=== PATIENT | female | born 1955 | race African-American/Black ===

== ENCOUNTER → 2016-11-03 | Outpatient (CLI) | payer OTHER ==
[~2016-11-03] MED LIST: ALEVE220 MG PO; AMARYL2 MG PO; ANTIVERT25 MG PO; CARVEDILOL6.25 MG PO; CLONIDINE0.1 PO; ESTRACE1 MG PO; FLEXERIL PO; HYDROCODON-ACE1 EAC8 PO; HYDROCODONE-APA1 TA1 PO; K-DUR 20 MEQ T20 MEQ PO; LANTUS100 UNIT/M SUBQ; LISINOPRIL5 MG PO; MAG-OX 400 TAB400 M1 PO; METFORMIN HCL500 MG PO; METFORMIN PO; MOTION RELIEF25 MG PO; NORCO 5-325 TA1 EACH PO; PREMARIN; TIZANIDINE HCL4 MG PO; TRAMADOL 50 MG50 MG PO; ULTRAM 50MG TAB50 MG PO
--- NOTE | ~2016-11-03 | 2DMMODE ---
[facility] [place] [address] 2 D/M-MODE ECHOCARDIOGRAM Name: DONNA WYNN Room #: REG CL Ray#: [id number] Admission: 11/03/16 Attend Phys: Venkat Raphael Discharge: Date of : 57 Date of Service: 11/03/16 1252 Report #: [id number] THIS REPORT FOR: //name// Transthoracic Echocardiography Ordering physician: Venkat Devries Referring Rhona Gil, physician: Venkat Koo [employer] Pro[employer] Job Titles: ANTONIO Magallon Indications/History: Cardiomyopathy, HTN. BP: 122 / HR: 65bpm Height: 69in Weight: 183.6lb 82 Study data: M-mode, complete 2D, complete spectral Doppler, and color Doppler. Location: Echo laboratory. Routine. Image quality was good. 2D measurements Normal Normal LVID ED 56.3mm 36-57 IVS ED 9.6mm 6-11 LVID ES 43.7mm 23-40 LVPW ED 10.5mm 6-11 LA volume 36ml/m2 16-28 AoRoot diam 29.4mm 21-37 index ED LVOT diameter 21mm 18-23 Findings: Left ventricle: The cavity size was normal. Wall thickness was normal. Systolic function was mildly reduced. The estimated ejection fraction was in the range of 45% to 50%. Wall motion was normal. Right ventricle: The cavity size was normal. Systolic function was normal. Right atrium: The atrium was normal in size. Left atrium: The atrium was dilated. Volume index: 36ml/m2 (S). Aortic valve: Trileaflet; mildly calcified leaflets. Doppler: There was no stenosis. No regurgitation. [address] [address] 2 D/M-MODE ECHOCARDIOGRAM Name: DONNA WYNN Room #: REG CL MBobRBob#: [id number] Admission: 11/03/16 Attend Phys: Venkat Raphael Discharge: Date of : 57 Date of Service: 11/03/16 1252 Report #: [id number] Peak velocity: 134.7cm/s (S). Mitral valve: Structurally normal valve. Doppler: There was no evidence for stenosis. Mild regurgitation. Peak E-wave velocity: 74cm/s. Peak gradient: 2.2mm Hg (D). Peak A-wave velocity: 67.5cm/s. Tricuspid valve: Structurally normal valve. Doppler: There was no evidence for stenosis. Mild regurgitation. Regurgitant peak velocity: 260.8cm/s. Peak RV-RA gradient: 27mm Hg (S). Pulmonic valve: Structurally normal valve. Doppler: There was no evidence for stenosis. Trivial regurgitation. Pericardium: There was no pericardial effusion. Aorta: Aortic root: The aortic root was normal in size. Pulmonary artery: Systolic pressure was estimated to be 32mm Hg. Diastolic function: Normal diastolic function. Systemic veins: Inferior vena cava: The vessel was normal in size; the respirophasic diameter changes were in the normal range (= 50%). Conclusions 1. Left ventricle: The cavity size was normal. Wall thickness was normal. 2. Left atrium: The atrium was dilated. 3. Aortic valve: No regurgitation. 4. Mitral valve: Structurally normal valve. Mild regurgitation. 5. Pulmonic valve: Trivial regurgitation. 6. Tricuspid valve: Mild regurgitation. 7. Pulmonary arteries: Systolic pressure was estimated to be 32mm Hg. <ELECTRONICALLY SIGNED> By: Venkat Devries MD 11/03/16 1431 1252 1431 Venkat Devries MD /eyad
== END ==
LOC: CV 10-01 10:50
DX: I42.9 Cardiomyopathy, unspecified (principal); I10 Essential (primary) hypertension

== ENCOUNTER → 2017-01-19 | Outpatient (CLI) | payer OTHER ==
--- NOTE | ~2017-01-19 | 2DMMODE ---
[address] [address] 2 D/M-MODE ECHOCARDIOGRAM Name: DONNA WYNN Room #: REG CL [facility]#: [id number] Admission: 01/19/17 Attend Phys: Venkat Raphael Discharge: Date of : 57 Date of Service: 01/20/17 0758 Report #: [id number] THIS REPORT FOR: //name// APPROVED REPORT EXAM: Limited 2D Echocardiogram Patient Location: Out-Patient Blood Pressure: 132/74 mmHg HR: 58 bpm Other Information Study Quality: Good Indications Cardiomyopathy Left Ventricle The left ventricle is normal size. Hypokinesis involving the inferolateral wall There is normal left ventricular wall thickness. Left ventricular systolic function is mildly decreased. LVEF is 45%. Diastolic function was not assessed. Right Ventricle The right ventricle is normal size. The right ventricular systolic function is normal. Atria The left atrium size is normal. The right atrium size is normal. Aortic Valve The aortic valve is normal in structure. Mitral Valve The mitral valve is normal in structure. Tricuspid Valve The tricuspid valve is normal in structure. Pulmonic Valve The pulmonary valve is normal in structure. Great Vessels [address] [address] 2 D/M-MODE ECHOCARDIOGRAM Name: DONNA WYNN Room #: REG CL [facility]#: [id number] Admission: 01/19/17 Attend Phys: Venkat Raphael Discharge: Date of : 57 Date of Service: 01/20/17 0758 Report #: [id number] The aortic root is normal in size. IVC is not visualized. Pericardium There is no pericardial effusion. <Conclusion> Left ventricular systolic function is mild-moderately decreased. Hypokinesis involving the inferolateral wal. LVEF is 45%. The aortic valve is normal in structure. No Doppler The mitral valve is normal in structure. No Doppler There is no pericardial effusion. <ELECTRONICALLY SIGNED> By: Malik Landrum MD, [facility] 01/20/17 0758 0758 0758 Malik Landrum MD, FAC /INF
== END ==
LOC: CV 01-07 10:14
DX: I42.9 Cardiomyopathy, unspecified (principal)

== ENCOUNTER 2017-05-06 18:52 | Emergency (ER) | payer OTHER ==
[~2017-05-06] VITALS: Ht 175.3 cm; Wt 87.1 kg
--- NOTE | ~2017-05-06 | EKG ---
[place] [address] [address] [employer] [facility] [place] [place] [address] ELECTROCARDIOGRAM REPORT Name: DONNA OWUSU Room #: DEP [facility]#: [id number] Admission: 05/06/17 Attend Phys: Discharge: 05/06/17 Date of : 57 Report #: [id number] THIS REPORT FOR: //name// [facility] ED Test Date: 2017-05-06 Test Time: 19:22:37 Pat Name: DONNA OWUSU Department: Room: Gender: F Customer Management Specialist: abner : [id number] Requested By: Rosales Arredondo Order Number: [id number] MD: Malik Landrum Measurements Intervals Wright Rate: 72 P: 53 NV: 147 QRS: -50 QRSD: 149 T: -13 QT: 409 QTc: 448 Interpretive Statements Sinus rhythm Paired ventricular premature complexes Probable left atrial enlargement RBBB and LAFB Compared to ECG 11/21/2015 09:48:14 [address]ons[address] change in the ST and T-wave segments Electronically Signed On 05-08-2017 13:19:21 CDT by Malik Landrum [email or web address] <ELECTRONICALLY SIGNED> By: Malik Landrum MD, [facility] 05/08/17 1319 192 21 Malik Landrum MD, [facility] /EPI
[2017-05-06] MEDS ORDERED: LANTUS100 UNIT/M SUBQ (19:11)
[2017-05-06] MEDS ORDERED: DEMADEX20 MG PO (19:11)
[2017-05-06] MEDS ORDERED: METFORMIN HCL500 MG PO (19:11)
[2017-05-06] MEDS ORDERED: AMITIZA 24 MCG24 MC1 PO (19:12)
[2017-05-06] MEDS ORDERED: COZAAR 50 MG TA50 M2 PO (19:12)
[2017-05-06 19:34] LABS: ABSOLUTE NEUTROPHILS 4.9 thou/uL (1.4-8.2); BASOPHILS 0.5 % (0.0-2.0); EOSINOPHILS 2.2 % (0.0-3.0); HEMATOCRIT 34.5 % (37.0-47.0); HEMOGLOBIN 11.4 gm/dL (12.0-15.0); LYMPHOCYTES 21.9 % (24.0-44.0); MANUAL DIFF NO; MCH 27.4 pg (26.0-34.0); MCHC 33.2 g/dL (28.0-37.0); MCV 82.5 fL (80.0-100.0); PLATELET COUNT 325 thou/uL (150-400); POLYS 67.4 % (36.0-66.0); RBC 4.18 mil/uL (4.20-5.00); WBC 7.3 thou/uL (4.0-11.0)
[2017-05-06 20:02] LABS: ALBUMIN 3.7 g/dL (3.4-5.0); ALKALINE PHOSPHATASE 52 U/L (46-116); ANION GAP 8 mmol/L (7-16); BUN 10 mg/dL (7-18); CALCIUM 8.4 mg/dL (8.5-10.1); CHLORIDE 107 mmol/L (98-107); CK-MB MASS 1.7 ng/mL (<0.5-3.6); CO2 28 mmol/L (21-32); GLUCOSE 124 mg/dL (74-106); MAGNESIUM 1.4 mg/dL (1.8-2.4); NT-PRO BRAIN NAT PEPTIDE 6811 pg/mL (<300); SGOT 32 U/L (15-37); SGPT 43 U/L (30-65); SODIUM 143 mmol/L (136-145); TOTAL BILIRUBIN 0.4 mg/dL (<0.1-1.0); TOTAL PROTEIN 7.2 g/dL (6.4-8.2); TROPONIN-I < 0.04 ng/mL (<0.04-0.07)
[2017-05-06 20:05] LABS: POTASSIUM 2.9 mmol/L (3.5-5.1)
[2017-05-06] MEDS ORDERED: MAG-OXIDE400 MG PO (21:12)
[2017-05-06] MEDS ORDERED: POTASSIUM20 PO (21:12)
[2017-05-06] MEDS ORDERED: VENTOLIN HFA 1818 GM INH (21:12)
== END 2017-05-06 21:36 | disposition home or self-care (01) ==
LOC: ER 18:52
PROVIDERS: Emergency Medicine
DX: S39.011A Strain of muscle, fascia and tendon of abdomen, initial encounter (principal); J40 Bronchitis, not specified as acute or chronic; J98.11 Atelectasis; R11.10 Vomiting, unspecified; E11.9 Type 2 diabetes mellitus without complications; Z90.710 Acquired absence of both cervix and uterus; Z98.890 Other specified postprocedural states; Z79.4 Long term (current) use of insulin; X58.XXXA Exposure to other specified factors, initial encounter; Y93.89 Activity, other specified; Y92.89 Other specified places as the place of occurrence of the external cause; Y99.8 Other external cause status

== ENCOUNTER 2017-12-09 08:37 | Inpatient (IN) | payer OTHER ==
[~2017-12-09] VITALS: Ht 175.3 cm; Wt 88.9 kg
--- NOTE | ~2017-12-09 | EKG ---
[place] [address] [place] [address] ELECTROCARDIOGRAM REPORT Name: DONNA OWUSU Room #: 409-[facility].R.#: [id number] Admission: 12/09/17 Attend Phys: Bryan Boswell Discharge: Date of : 57 Report #: [id number] THIS REPORT FOR: //name// [facility] ED Test Date: 2017-12-09 Test Time: 10:40:19 Pat Name: DONNA OWUSU Department: Room: 409 Gender: F Dehydrogenation Supervisor: MAITE : [id number] Requested By: Lisa Corrigan Order Number: [id number] MD: Malik Landrum Measurements Intervals [place] Rate: 55 P: 37 MT: 136 QRS: -56 QRSD: 144 T: 0 QT: 475 QTc: 455 Interpretive Statements Sinus rhythm Paired ventricular premature complexes 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 12/12/17 0713 1040 1040 Malik Landrum MD, [facility] /EPI
--- NOTE | ~2017-12-09 | D ---
[facility] [place] [address] DISCHARGE SUMMARY Name: DONNA WYNN Room #: [facility] IN M.R.#: [id number] Admission: 12/12/17 Attend Phys: Bryan Boswell Discharge: 12/12/17 Date of : 57 Report #: [id number] THIS REPORT FOR: //name// CC: Rhona Boswell DATE OF SERVICE: 12/12/2017 HISTORY OF PRESENT ILLNESS: The patient is a 62-year-old female with a history of congestive heart failure, systolic dysfunction with ejection fraction of 45%, who came to the hospital with progressively worsening shortness of breath. Please refer to admission H and P for details. In brief, the patient was found to have congestive heart failure exacerbation. Chest x-ray also shows right hilar prominence, so pneumonia could not be ruled out. HOSPITALIZATION COURSE: The patient was hospitalized for congestive heart failure exacerbation. She was started on IV diuresis, fluid and salt restricted diet. The patient did well. Currently, the patient feels much better, shortness of breath has entirely resolved, and she is asymptomatic. The patient was instructed to take medications properly and follow low salt diet closely. Close outpatient followup is recommended. DISCHARGE DIAGNOSES: 1. Acute on chronic congestive heart failure exacerbation, systolic. As noted, ejection fraction is 45% per previous records. Currently compensated. 2. Right hilar infiltrate on the chest x-ray, pneumonia cannot be ruled out. Continue empiric Levaquin as an outpatient. SECONDARY DIAGNOSES: Include diabetes mellitus type 2, status post hysterectomy, hypertension, history of lower back surgery. DISCHARGE MEDICATIONS: Please refer to medication reconciliation list. In brief, the patient will be continued on outpatient medications unchanged. She is already on ARB, as well as on Coreg, and torsemide. Levaquin is prescribed for 5 more days. DISPOSITION: The patient is discharged home. FOLLOWUP PLAN: Follow up with senior process analyst in 1 week. <ELECTRONICALLY SIGNED> By: Ángel Valdez MD 01/08/18 1549 1323 1406 Ángel Valdez MD /nt
[~2017-12-09 08:37] MED LIST changes: +AMITIZA 24 MCG24 MC1 PO; +COZAAR 50 MG TA50 M2 PO; +DEMADEX20 MG PO; +GLUCOPHAGE500 MG PO; +HYDROCODON-ACE1 EAC1 PO; +LANTUSSOLASTAR SUBQ; +MAG-OXIDE400 MG PO; +PERCOCET 5-3251 EACH PO; +POTASSIUM20 PO; +PREDNISONE 5 MG5 MG PO; +VENTOLIN HFA 1818 GM INH
[2017-12-09 08:48] VITALS: BP 162/106
[2017-12-09] MEDS ORDERED: COREG25 MG PO (09:38)
[2017-12-09] MEDS ORDERED: ALDACTONE25 MG PO (09:38)
[2017-12-09] MEDS ORDERED: NORCO 5-325 TA1 EACH PO (09:39)
[2017-12-09] MEDS ORDERED: COZAAR 50 MG TA50 M2 PO (09:39)
[2017-12-09 09:54] LABS: ABSOLUTE NEUTROPHILS 4.1 thou/uL (1.4-8.2); BASOPHILS 0.8 % (0.0-2.0); EOSINOPHILS 1.6 % (0.0-3.0); HEMATOCRIT 35.3 % (37.0-47.0); HEMOGLOBIN 11.5 gm/dL (12.0-15.0); LYMPHOCYTES 18.6 % (24.0-44.0); MCH 27.2 pg (26.0-34.0); MCHC 32.7 g/dL (28.0-37.0); MONOCYTES 7.4 % (1.0-8.0); PLATELET COUNT 268 thou/uL (150-400); POLYS 71.6 % (36.0-66.0); RBC 4.25 mil/uL (4.20-5.00); WBC 5.8 thou/uL (4.0-11.0)
[2017-12-09 10:01] LABS: ANION GAP 8 mmol/L (7-16); BUN 14 mg/dL (7-18); CALCIUM 8.9 mg/dL (8.5-10.1); CHLORIDE 107 mmol/L (98-107); CO2 28 mmol/L (21-32); CREATININE 0.8 mg/dL (0.6-1.0); GLUCOSE 129 mg/dL (74-106); POTASSIUM 3.8 mmol/L (3.5-5.1); SODIUM 143 mmol/L (136-145)
[2017-12-09 10:09] LABS: TROPONIN-I < 0.04 ng/mL (<0.06)
[2017-12-09 12:24] VITALS: BP 130/91
[2017-12-09 13:08] VITALS: BP 140/86
[2017-12-09 19:47] VITALS: BP 151/86
[2017-12-10 04:00] VITALS: BP 141/88
[2017-12-10 04:53] LABS: CALCIUM 9.2 mg/dL (8.5-10.1); CREATININE 0.8 mg/dL (0.6-1.0); MAGNESIUM 1.7 mg/dL (1.8-2.4); POTASSIUM 4.1 mmol/L (3.5-5.1)
[2017-12-10 08:22] VITALS: BP 159/88
[2017-12-10 15:32] VITALS: BP 132/67
[2017-12-10 20:00] VITALS: BP 144/77
[2017-12-11 04:00] VITALS: BP 150/85
[2017-12-11 08:00] VITALS: BP 143/82
[2017-12-11 16:00] VITALS: BP 152/89
[2017-12-11 19:52] VITALS: BP 153/85
[2017-12-12 04:30] VITALS: BP 130/92
[2017-12-12 04:32] LABS: ABSOLUTE NEUTROPHILS 5.1 thou/uL (1.4-8.2); BASOPHILS 0.6 % (0.0-2.0); EOSINOPHILS 2.3 % (0.0-3.0); HEMATOCRIT 39.7 % (37.0-47.0); HEMOGLOBIN 13.2 gm/dL (12.0-15.0); LYMPHOCYTES 20.1 % (24.0-44.0); MCH 27.3 pg (26.0-34.0); MCHC 33.2 g/dL (28.0-37.0); MCV 82.2 fL (80.0-100.0); MONOCYTES 8.3 % (1.0-8.0); PLATELET COUNT 315 thou/uL (150-400); POLYS 68.7 % (36.0-66.0); RBC 4.83 mil/uL (4.20-5.00); RDW 13.9 % (10.5-14.5); WBC 7.4 thou/uL (4.0-11.0)
[2017-12-12 04:41] LABS: CALCIUM 9.1 mg/dL (8.5-10.1); CREATININE 1.1 mg/dL (0.6-1.0); MAGNESIUM 1.5 mg/dL (1.8-2.4); POTASSIUM 3.7 mmol/L (3.5-5.1)
[2017-12-12 08:30] VITALS: BP 143/85
[2017-12-12] MEDS ORDERED: LEVAQUIN 500 M500 M1 PO (13:25)
[2017-12-12 15:09] VITALS: BP 143/85
[2017-12-12 15:54] VITALS: BP 143/85
[2017-12-12 16:38] VITALS: BP 125/63
== END 2017-12-12 17:15 | disposition home or self-care (01) | DRG 291 ==
LOC: ER 08:37 → 4N 10:50 → EROBS 10:50 → 4N 12:54 → ENTRNSPT 13:33 → 4N 12-12 12:27 → ENTRNSPT 12-12 16:28 → 4N 12-12 17:15
PROVIDERS: Emergency Medicine; Nurse Practitioner
DX: I11.0 Hypertensive heart disease with heart failure (principal); J18.9 Pneumonia, unspecified organism; J96.90 Respiratory failure, unspecified, unspecified whether with hypoxia or hypercapnia; I50.9 Heart failure, unspecified; E11.9 Type 2 diabetes mellitus without complications; E78.5 Hyperlipidemia, unspecified; R91.1 Solitary pulmonary nodule; K59.00 Constipation, unspecified; Z79.4 Long term (current) use of insulin; G89.29 Other chronic pain; M54.9 Dorsalgia, unspecified; Z79.891 Long term (current) use of opiate analgesic; Z90.710 Acquired absence of both cervix and uterus; Z82.49 Family history of ischemic heart disease and other diseases of the circulatory system; Z79.899 Other long term (current) drug therapy
CPT/HCPCS: 10790

== ENCOUNTER 2017-12-15 15:10 | Inpatient (IN) | payer OTHER ==
[~2017-12-15] VITALS: Ht 175.3 cm; Wt 83.9 kg
--- NOTE | ~2017-12-15 | H ---
[facility] [place] [address] HISTORY AND PHYSICAL Name: DONNA WYNN Room #: 411-P [facility] IN M.R.#: [id number] Admission: 12/16/17 Attend Phys: Ángel Valdez MD Discharge: 12/19/17 Date of : 57 Report #: [id number] THIS REPORT FOR: //name// CC: Rhona Valdez DATE OF SERVICE: 12/15/2017 CHIEF COMPLAINT: Intractable back pain. HISTORY OF PRESENT ILLNESS: The patient is a 62-year-old female with longstanding history of back problems. The patient was just hospitalized here for CHF exacerbation, and was discharged home a few days ago. At that time, the patient was hospitalized under different last name, Aliza, same first name. The patient states that after she went home, her CHF has been stable, and she has not had shortness of breath. The patient has had back pain since 2000 when she sustained injury at work. The patient had several surgeries since then. Currently, the patient takes ibuprofen at home as well as [place]. She states that pain medications do not work well. She does not follow in the Pain Clinic. Last couple of days, patient had intractable back pain, and she states that it is hard to walk. The patient denies paresthesias. She denies urinary or fecal incontinence. PAST MEDICAL HISTORY: 1. CHF, nonischemic cardiomyopathy, ejection fraction 45% based on echo in 12/2016. 2. Diabetes mellitus type 2. 3. Hypertension. 4. Chronic back pain, as detailed above. HOME MEDICATIONS: Reviewed and documented in the patient's chart. FAMILY HISTORY: Reviewed and not pertinent to the patient's current condition. SOCIAL HISTORY: The patient does not smoke cigarettes and does not drink alcohol. REVIEW OF SYSTEMS: As above in HPI section, all others negative. PHYSICAL EXAMINATION: GENERAL: The patient is a middle-aged female, looks uncomfortable due to ongoing pain. VITAL SIGNS: Blood pressure is 139/86, heart rate is 75, respiration is 16, temperature is 98.1. HEENT: Pupils are equal. Eye movements are normal. Sclerae are anicteric. [facility] [address] [place] [address] HISTORY AND PHYSICAL Name: DONNA WYNN Room #: 411-P [facility] IN M.R.#: [id number] Admission: 12/16/17 Attend Phys: Ángel Valdez MD Discharge: 12/19/17 Date of : 57 Report #: [id number] NECK: Supple. Thyromegaly is not palpated. RESPIRATORY: Chest moves symmetrically with breathing. Respiratory sounds are clear. CARDIOVASCULAR: The patient has regular rhythm and rate. She has no murmurs, gallops or rubs. GASTROINTESTINAL: Abdomen is soft, nondistended and nontender. Bowel sounds are present. The patient has no hepatomegaly or splenomegaly. MUSCULOSKELETAL: The patient has no edema, cyanosis or clubbing. No joint deformities appreciated. NEUROLOGIC: The patient is alert and oriented x 3. Her examination is nonfocal. SKIN: Reveals no skin lesions. LABORATORY DATA: Metabolic profile shows elevated creatinine at 1.6, it was 1.1 during his previous visit. Electrolytes are normal. BNP is slightly high at 1161. CBC is essentially normal. Urinalysis is not available. ASSESSMENT AND PLAN: 1. Intractable back pain, acute exacerbation of the chronic back pain. We will obtain MRI for further evaluation. Continue symptomatic treatment. Physical therapy. 2. Congestive heart failure, systolic, chronic. Ejection fraction 45% based on cardiac echo about a year ago. No exacerbation. Continue home medications unchanged. 3. Diabetes mellitus type 2. Metformin was discontinued due to previous visit due to congestive heart failure. Continue Lantus, reduce dose to 20 units at night, from 26 units at night. 4. Hypertension. Acceptable control. 5. Deep venous thrombosis prophylaxis. Subcutaneous Lovenox. <ELECTRONICALLY SIGNED> By: Ángel Valdez MD 12/19/17 1906 194 18 Ángel Valdez MD /nt
--- NOTE | ~2017-12-15 | D ---
[facility] [place] [address] DISCHARGE SUMMARY Name: DONNA WYNN Room #: 411-P [facility] IN M.R.#: [id number] Admission: 12/16/17 Attend Phys: Ángel Valdez MD Discharge: 12/19/17 Date of : 57 Report #: [id number] THIS REPORT FOR: //name// CC: Rhona Valdez DATE OF SERVICE: 12/19/2017 HISTORY OF PRESENT ILLNESS: The patient is a 62-year-old female who was admitted here for intractable lower back pain. Please refer to the admission H and P for details. In brief, the patient has longstanding history of back problems. She had surgery several years ago after she sustained back injury. She was followed by neurosurgeon until 2 years ago. Currently, she follows by a primary care physician. HOSPITALIZATION COURSE: The patient was hospitalized for intractable back pain. For further evaluation, the patient had lumbar spine CT, and then she had MRI. CT reveals spondylosis. MRI showed effacement of the descending right S1 nerve root at L5-S1 due to the right paracentral and subarticular zone posterior osteophytic riding. The patient failed conservative measures. She still remains symptomatic. She cannot participate in physical therapy. Due to this, neurosurgery consultation is requested. Because neurosurgery service is not available here, the patient will be transferred to the [facility] for further evaluation and treatment. The patient's condition is medically stable at the transfer. DISCHARGE DIAGNOSIS: Intractable lower back pain, details as above in hospital course section. SECONDARY DIAGNOSES: Includes: 1. Congestive heart failure, nonischemic cardiomyopathy, ejection fraction 45% based on echo in December 2016. Compensated. 2. Diabetes mellitus type 2. 3. Hypertension. 4. Chronic back pain, as detailed above. DISCHARGE MEDICATIONS: Please refer to medication reconciliation list. DISPOSITION: The patient is discharged to the [facility] for further evaluation and treatment regarding her acute on chronic back pain. [address] [address] DISCHARGE SUMMARY Name: DONNA WYNN Room #: 411-[facility] IN ..#: [id number] Admission: 12/16/17 Attend Phys: Ángel Valdez MD Discharge: 12/19/17 Date of : 57 Report #: [id number] I spent greater than 30 minutes to coordinate the patient's discharge/transfer. <ELECTRONICALLY SIGNED> By: Ángel Valdez MD 12/19/17 1906 1305 1819 Ángel Valdez MD /nt
[~2017-12-15 15:10] MED LIST changes: +ALDACTONE25 MG PO; +COREG25 MG PO; +LEVAQUIN 500 M500 M1 PO
[2017-12-15 15:14] VITALS: BP 133/61
[2017-12-15 16:31] LABS: ABSOLUTE NEUTROPHILS 7.6 thou/uL (1.4-8.2); BASOPHILS 0.9 % (0.0-2.0); EOSINOPHILS 0.6 % (0.0-3.0); HEMATOCRIT 38.5 % (37.0-47.0); HEMOGLOBIN 13.1 gm/dL (12.0-15.0); LYMPHOCYTES 15.2 % (24.0-44.0); MCH 27.3 pg (26.0-34.0); MCHC 33.9 g/dL (28.0-37.0); MCV 80.6 fL (80.0-100.0); MONOCYTES 11.3 % (1.0-8.0); PLATELET COUNT 383 thou/uL (150-400); RBC 4.78 mil/uL (4.20-5.00); RDW 13.4 % (10.5-14.5); WBC 10.6 thou/uL (4.0-11.0)
[2017-12-15 17:12] LABS: CALCIUM 9.8 mg/dL (8.5-10.1); CREATININE 1.6 mg/dL (0.6-1.0); POTASSIUM 3.5 mmol/L (3.5-5.1)
[2017-12-15 18:26] VITALS: BP 139/86
[2017-12-15 19:55] VITALS: BP 117/59
[2017-12-16] MEDS ORDERED: VENTOLIN HFA 1818 GM INH (00:31)
[2017-12-16] MEDS ORDERED: COREG25 MG PO (00:31)
[2017-12-16] MEDS ORDERED: AMARYL2 MG PO (00:32)
[2017-12-16] MEDS ORDERED: ESTRADIOL 1 MG T1 M1 PO (00:32)
[2017-12-16] MEDS ORDERED: NORCO 5-325 TA1 EACH PO ×2 (00:33→00:34)
[2017-12-16] MEDS ORDERED: COZAAR 50 MG TA50 M2 PO (00:35)
[2017-12-16] MEDS ORDERED: LEVAQUIN 500 M500 M2 PO (00:35)
[2017-12-16] MEDS ORDERED: AMITIZA 24 MCG24 MC1 PO (00:36)
[2017-12-16] MEDS ORDERED: DEMADEX20 MG PO (00:36)
[2017-12-16 04:35] VITALS: BP 123/71
[2017-12-16 05:18] LABS: CALCIUM 9.3 mg/dL (8.5-10.1); POTASSIUM 3.6 mmol/L (3.5-5.1)
[2017-12-16 07:34] VITALS: BP 127/81
[2017-12-16 15:49] VITALS: BP 93/57
[2017-12-16 19:38] VITALS: BP 95/57
[2017-12-17] VITALS: BP 105/58
[2017-12-17 04:00] VITALS: BP 117/61
[2017-12-17 06:43] LABS: CALCIUM 9.3 mg/dL (8.5-10.1); CREATININE 0.9 mg/dL (0.6-1.0); POTASSIUM 3.5 mmol/L (3.5-5.1)
[2017-12-17 07:13] VITALS: BP 110/59
[2017-12-17 15:46] VITALS: BP 94/57
[2017-12-17 20:17] VITALS: BP 93/47
[2017-12-18 04:00] VITALS: BP 100/56
[2017-12-18 07:55] VITALS: BP 90/58
[2017-12-18 16:06] VITALS: BP 103/65
[2017-12-18 19:47] VITALS: BP 138/69
[2017-12-19 04:00] VITALS: BP 122/61
[2017-12-19 05:03] LABS: URINE BILIRUBIN NEGATIVE (Negative); URINE BLOOD 1+ (Negative); URINE CLARITY CLEAR; URINE COLOR YELLOW; URINE GLUCOSE-RANDOM* NEGATIVE (Negative); URINE KETONES 1+ (Negative); URINE LEUKOCYTES TRACE (Negative); URINE NITRITE NEGATIVE (Negative); URINE PROTEIN (DIPSTICK) NEGATIVE (Negative); URINE SPECIFIC GRAVITY 1.015 (1.005-1.035); URINE UROBILINOGEN 0.2 E.U./dl (0.2-1.0)
[2017-12-19 05:29] LABS: CASTS None Seen /LPF (None Seen); MUCUS 0-3 Light strn/LPF (None Seen); SQUAMOUS 4-10 Moderate /LPF (0-3); URINE RBC 3-10 Few /HPF (0-2); URINE WBC 0-5 Rare /HPF (0-5)
[2017-12-19 05:30] LABS: CRYSTALS None Seen /LPF (None Seen)
[2017-12-19 07:35] VITALS: BP 122/79
[2017-12-19 15:25] VITALS: BP 93/51
[2017-12-19 18:09] VITALS: BP 120/70
== END 2017-12-19 18:33 | disposition short-term general hospital (02) | DRG 552 ==
LOC: ER 15:10 → EROBS 17:47 → 4N 19:36
PROVIDERS: Internal Medicine Endocrinology, Diabetes & Metabolism; Nurse Practitioner
DX: M54.5 Low back pain (principal); I50.22 Chronic systolic (congestive) heart failure; I42.9 Cardiomyopathy, unspecified; N17.9 Acute kidney failure, unspecified; I11.0 Hypertensive heart disease with heart failure; G89.29 Other chronic pain; E11.9 Type 2 diabetes mellitus without complications; Z79.4 Long term (current) use of insulin; Z79.84 Long term (current) use of oral hypoglycemic drugs; Z23 Encounter for immunization
CPT/HCPCS: 10091

== ENCOUNTER → 2019-07-11 | Outpatient (CLI) | payer OTHER ==
[~2019-07-11] MED LIST changes: +ESTRADIOL 1 MG T1 M1 PO; +LEVAQUIN 500 M500 M2 PO
--- NOTE | 2019-07-11 11:04 | 2DMMODE ---
[facility] [place] [address] 2 D/M-MODE ECHOCARDIOGRAM Name: DONNA WYNN Room #: REG [facility]#: [id number] ������������� Admission: 07/11/19 ������������� Attend Phys: Venkat Raphael Discharge: ��� ������������� ��� Date of : 57 Date of Service: 07/11/19 1104 �� Report #: [id number] �������� ��������������������������������������������[id number] THIS REPORT FOR: //name// APPROVED REPORT Study performed: 07/11/2019 10:22:02 EXAM: Comprehensive 2D, Doppler, and color-flow Echocardiogram Patient Location: Out-Patient Status: routine BSA: 2.07 HR: 71 bpm BP: 124/70 mmHg Rhythm: IRREGULAR Other Information Study Quality: Good Indications Cardiomyopathy 2D Dimensions RVDd: 33.98 mm IVSd: 12.36 (7-11mm) LVOT Diam: 21.05 (18-24mm) LVDd: 57.00 mm PWd: 11.33 (7-11mm) Ascending Ao: 34.54 (22-36mm) LVDs: 44.56 (25-40mm) Aortic Root: 32.60 mm Volumes Left Atrial Volume (Systole) Single Plane 4CH: 65.54 mL Single Plane 2CH: 63.14 mL LA ESV Index: 33.00 mL/m2 Aortic Valve AoV Peak Elian.: 1.36 m/s AO Peak Gr.: 7.37 mmHg LVOT Max P.00 mmHg LVOT Max V: 1.12 m/s GAIL Vmax: 2.87 cm2 Mitral Valve E/A Ratio: 1.1 MV Decel. Time: 192.37 ms MV E Max Elian.: 0.71 m/s [facility] [address] [place] [address] 2 D/M-MODE ECHOCARDIOGRAM Name: DONNA WYNN Room #: REG [facility]#: [id number] ������������� Admission: 07/11/19 ������������� Attend Phys: Venkat Raphael Discharge: ��� ������������� ��� Date of : 57 Date of Service: 07/11/19 1104 �� Report #: [id number] �������� ��������������������������������������������[id number] MV A Elian.: 0.63 m/s MV PHT: 55.79 ms IVRT: 83.04 ms Pulmonary Valve PV Peak Elian.: 0.90 m/s PV Peak Gr.: 3.22 mmHg Pulmonary Vein P Vein S: 0.43 m/s P Vein D: 0.43 m/s P Vein S/D Ratio: 1.00 Tricuspid Valve TR Peak Elian.: 2.45 m/s RAP Estimate: 5.00 mmHg TR Peak Gr.: 23.98 mmHg PA Pressure: 29.00 mmHg Left Ventricle Left ventricle is at the upper limits of normal. Mild regional wall motion abnormalities are noted. Mild concentric left ventricular hypertrophy. Left ventricular systolic function is mildly decreased. LVEF is 45-50%. Moderate diastolic dysfunction is present (pseudonormal filling). Right Ventricle The right ventricle is normal size. The right ventricular systolic function is normal. Atria Left atrium is mildly dilated. The right atrium size is normal. Aortic Valve The aortic valve is normal in structure. Trace aortic regurgitation. There is no aortic valvular stenosis. Mitral Valve The mitral valve is normal in structure. Mild mitral regurgitation. Tricuspid Valve The tricuspid valve is normal in structure. Trace to mild tricuspid regurgitation. Estimated PAP is 30mmHg. Pulmonic Valve The pulmonary valve is normal in structure. Trace pulmonic [facility] [place] [address] 2 D/M-MODE ECHOCARDIOGRAM Name: DONNA WYNN Room #: REG CL John#: [id number] ������������� Admission: 07/11/19 ������������� Attend Phys: Venkat Raphael Discharge: ��� ������������� ��� Date of : 57 Date of Service: 07/11/19 1104 �� Report #: [id number] �������� ��������������������������������������������[id number] regurgitation. Great Vessels The aortic root is normal in size. The ascending aorta is normal in size. IVC is normal in size and collapses >50% with inspiration. Pericardium There is no pericardial effusion. <Conclusion> Left ventricle is at the upper limits of normal. Mild regional wall motion abnormalities are noted. Left atrium is mildly dilated. The aortic valve is normal in structure. Trace aortic regurgitation. The mitral valve is normal in structure. Mild mitral regurgitation. The tricuspid valve is normal in structure. Trace to mild tricuspid regurgitation. Estimated PAP is 30mmHg. The pulmonary valve is normal in structure. Trace pulmonic regurgitation. There is no pericardial effusion. ��������������������������������������������� <ELECTRONICALLY SIGNED> ���������������������������������������� By: Venkat Devries MD ��������������������������������������������� 07/11/19 1104 1104 1104 Venkat Devries MD /INF
== END ==
LOC: CV 10:03
DX: I08.1 Rheumatic disorders of both mitral and tricuspid valves (principal); I42.9 Cardiomyopathy, unspecified

== ENCOUNTER → 2020-09-03 | Outpatient (CLI) | payer OTHER | LOC: SJCVCIMAG 08-13 08:41 | PROVIDERS: ATTEND Internal Medicine | DX: I08.3 Combined rheumatic disorders of mitral, aortic and tricuspid valves (principal); I42.9 Cardiomyopathy, unspecified; I11.0 Hypertensive heart disease with heart failure; I50.9 Heart failure, unspecified; E11.9 Type 2 diabetes mellitus without complications ==

== ENCOUNTER 2020-12-01 13:09 | Emergency (ER) | payer OTHER ==
[~2020-12-01] VITALS: Ht 175.3 cm; Wt 90.3 kg
[2020-12-01 14:28] LABS: URINE BILIRUBIN NEGATIVE (Negative); URINE BLOOD NEGATIVE (Negative); URINE CLARITY CLEAR; URINE COLOR YELLOW; URINE GLUCOSE-RANDOM* NEGATIVE (Negative); URINE KETONES NEGATIVE (Negative); URINE LEUKOCYTES-REFLEX NEGATIVE (Negative); URINE NITRITE-REFLEX NEGATIVE (Negative); URINE PROTEIN (DIPSTICK) TRACE (Negative)
[2020-12-01] MEDS ORDERED: ZANAFLEX4 MG PO (15:23)
[2020-12-01] MEDS ORDERED: MOBIC7.5 MG PO (15:23)
[2020-12-01 15:42] VITALS: BP 145/79
== END 2020-12-01 15:43 | disposition home or self-care (01) ==
LOC: ER 13:09
PROVIDERS: Nurse Practitioner
DX: M54.16 Radiculopathy, lumbar region (principal); G89.29 Other chronic pain; E11.9 Type 2 diabetes mellitus without complications; Z98.890 Other specified postprocedural states; Z90.710 Acquired absence of both cervix and uterus; Z79.899 Other long term (current) drug therapy

== ENCOUNTER 2020-12-07 11:56 | Emergency (ER) | payer OTHER ==
[~2020-12-07] VITALS: Ht 175.3 cm; Wt 89.8 kg
[~2020-12-07 11:56] MED LIST changes: +MOBIC7.5 MG PO; +ZANAFLEX4 MG PO
[2020-12-07] MEDS ORDERED: MOBIC15 MG PO (12:54)
[2020-12-07 13:16] VITALS: BP 149/75
== END 2020-12-07 13:17 | disposition home or self-care (01) ==
LOC: ER 11:56
DX: M77.8 Other enthesopathies, not elsewhere classified (principal); E11.9 Type 2 diabetes mellitus without complications; Z90.710 Acquired absence of both cervix and uterus; G89.29 Other chronic pain; M54.9 Dorsalgia, unspecified; Z79.4 Long term (current) use of insulin; Z79.899 Other long term (current) drug therapy; Z88.8 Allergy status to other drugs, medicaments and biological substances

== ENCOUNTER 2020-12-30 10:54 | Inpatient (IN) | payer OTHER ==
[~2020-12-30] VITALS: Ht 175.3 cm; Wt 88.5 kg
[~2020-12-30 10:54] MED LIST changes: +MOBIC15 MG PO
[2020-12-30 10:56] VITALS: BP 137/62
[2020-12-30 13:01] LABS: HEMATOCRIT 37.2 % (37.0-47.0); HEMOGLOBIN 11.8 gm/dL (12.0-15.0); MCH 25.7 pg (26.0-34.0); MCHC 31.8 g/dL (28.0-37.0); MCV 80.6 fL (80.0-100.0); RBC 4.61 mil/uL (4.20-5.00); RDW 14.2 % (10.5-14.5); WBC 8.9 thou/uL (4.0-11.0)
[2020-12-30 13:06] LABS: URINE BILIRUBIN NEGATIVE (Negative); URINE BLOOD NEGATIVE (Negative); URINE CLARITY CLEAR; URINE COLOR YELLOW; URINE GLUCOSE-RANDOM* NEGATIVE (Negative); URINE KETONES NEGATIVE (Negative); URINE LEUKOCYTES-REFLEX TRACE (Negative); URINE NITRITE-REFLEX NEGATIVE (Negative); URINE PROTEIN (DIPSTICK) NEGATIVE (Negative)
[2020-12-30 13:12] LABS: CALCIUM 9.6 mg/dL (8.5-10.1); CREATININE 0.8 mg/dL (0.6-1.0); POTASSIUM 3.9 mmol/L (3.5-5.1)
[2020-12-30 16:18] LABS: FOLIC ACID 10.1 ng/mL (8.6-58.9)
[2020-12-30 17:24] VITALS: BP 100/54
--- NOTE | 2020-12-30 23:11 | NUR ---
ADMSIION ASSESSMENT COMPLETED. PT IS ALERT AND ORIENTED. SHE C/O INTRACTABLE BACK PAIN RATING IT AT A 7/10 AT REST-FENTANYL PRN GIVEN. PTABLE TO WALK TO THE BATHROOM, BUT SHE MOVES VERY SLOWLY. AFEBRILE. NO RESP DISTRESS.CALLS WITH NEEDS. FALL EDUACTION PROVIDED. WILL CONTINUE WITH POC TILL EOS.
[2020-12-31 02:55] VITALS: BP 131/52
[2020-12-31 05:05] LABS: ABSOLUTE NEUTROPHILS 5.1 thou/uL (1.4-8.2); BASOPHILS 0.5 % (0.0-2.0); EOSINOPHILS 1.7 % (0.0-3.0); HEMATOCRIT 34.6 % (37.0-47.0); HEMOGLOBIN 11.1 gm/dL (12.0-15.0); MCHC 32.1 g/dL (28.0-37.0); MCV 80.8 fL (80.0-100.0); MONOCYTES 10.2 % (1.0-8.0); PLATELET COUNT 383 thou/uL (150-400); POLYS 71.6 % (36.0-66.0); RBC 4.28 mil/uL (4.20-5.00); RDW 14.3 % (10.5-14.5); WBC 7.1 thou/uL (4.0-11.0)
[2020-12-31 05:11] LABS: CALCIUM 9.1 mg/dL (8.5-10.1); CREATININE 1.1 mg/dL (0.6-1.0); MAGNESIUM 1.8 mg/dL (1.8-2.4); POTASSIUM 3.7 mmol/L (3.5-5.1)
[2020-12-31 07:59] VITALS: BP 114/62
--- NOTE | 2020-12-31 08:35 | NUR ---
ASSESSMENT: CM REVIEWED CHART AND SPOKE WITH PATIENT. PT IS ALERT AND ORIENTED X4. PT WAS ADMITTED DUE TO INTRACTABLE BACK PAIN. PT HAS HX OF BACK SURGERY IN THE PAST. PT REPORTS LIVING IN A HOUSE ALONE. PT STATES SHE HAS ABOUT 7 STEPS WITH HANDRAILS TO ENTER HER HOME AND ABOUT 5 STEPS WITH HANDRAILS TO HER BEDROOM. PT REPORTS SHE IS NORMALLY INDEPENDENT WITH ADLS AND AMBULATION BUT STATES SHE DOES HAVE A CANE AND WALKER AT HOME. PT REPORTS SHE ALSO HAS A SHOWER CHAIR. PT STATES NO HX OF HH OR SNF. NEUROSURGERY HAS BEEN CONSULTED TO SEE PATIENT WELL PT/OT. CM WILL CONTINUE TO FOLLOW TO ASSIST NEEDED.
[2020-12-31] MEDS ORDERED: METFORMIN HCL500 M1 PO (09:32)
[2020-12-31] MEDS ORDERED: ENTRESTO 97 MG1 EACH PO (09:33)
[2020-12-31] MEDS ORDERED: CARVEDILOL25 MG PO (09:34)
[2020-12-31 15:37] VITALS: BP 114/62
[2020-12-31 15:44] VITALS: BP 139/69
--- NOTE | 2020-12-31 18:34 | NUR ---
PT CARE ASSUMED AT 0700. A&Ox4. PAIN MANAGED WELL WITH PAIN MEDICATION ON BOARD. CT OF THE ABDOMEN AND PELVIC PERFORMED SEE CHART FOR RESULTS. IV PATENT WITH NO REDNESS OR EDEMA, FLUIDS INFUSING. UP TO THE BATHROOM. ACHS WITH LOW SLIDING SCALE, NONE NEEDED. CALL LIGHT IN REACH. FALL PROTOCOL IN PLACE. WILL CONTINUE TO MONITOR.
[2020-12-31 20:50] VITALS: BP 112/63
[2021-01-01 03:50] VITALS: BP 120/64
--- NOTE | 2021-01-01 04:02 | NUR ---
ASSESSMENT COMPLETED. PT ALERT AND ORIENTED. MAKES NEEEDS KNOWN.SHE HAS BEEN RESTING WELL, SHE HAS BEEN GIVEN NORCO X 1 FOR PAIN.
[2021-01-01 07:51] VITALS: BP 122/77
[2021-01-01] MEDS ORDERED: ROBAXIN 750 MG750 MG PO (10:10)
[2021-01-01] MEDS ORDERED: ZOFRAN 4 MG ORAL4 MG PO (10:43)
[2021-01-01] MEDS ORDERED: REGLAN 5 MG TAB5 MG PO (10:43)
[2021-01-01] MEDS ORDERED: PROTONIX40 M2 PO (10:43)
[2021-01-01 11:03] VITALS: BP 114/62
--- NOTE | 2021-01-01 11:35 | NUR ---
PT A&OX4, VSS, DENIES PAIN. PATIENT RESTING IN BED. WALKER HAS BEEN DELIVERED. NO SIGNS OF DISTRESS. WILL CONTINUE TO MONITOR.
--- NOTE | 2021-01-01 11:37 | NUR ---
ON-GOING ASSESSMENT: CM REVIEWED CHART AND SPOKE WITH ATTENDING. PT HAS ORDERS TO DISCHARGE HOME TODAY. PROVIDER PLUS HAS DELIVERED WALKER TO PATIENTS ROOM. PT REPORTS THAT HER DAUGHTER IS ABLE TO PROVIDE TRANSPORTATION. PT REPORTS NO FURTHER NEEDS FROM CM.
== END 2021-01-01 15:20 | disposition home or self-care (01) | DRG 552 ==
LOC: ER 10:54 → 4S 15:18 → EROBS 15:18 → 4S 18:12
PROVIDERS: Nurse Practitioner; Physician Assistant; ADMIT Hospitalist; ATTEND Hospitalist
DX: M48.05 Spinal stenosis, thoracolumbar region (principal); I50.20 Unspecified systolic (congestive) heart failure; N17.9 Acute kidney failure, unspecified; M47.895 Other spondylosis, thoracolumbar region; M51.36 Other intervertebral disc degeneration, lumbar region; E11.9 Type 2 diabetes mellitus without complications; M51.35 Other intervertebral disc degeneration, thoracolumbar region; G89.29 Other chronic pain; M54.9 Dorsalgia, unspecified; I11.0 Hypertensive heart disease with heart failure; Z87.01 Personal history of pneumonia (recurrent); Z88.8 Allergy status to other drugs, medicaments and biological substances; Z79.899 Other long term (current) drug therapy
CPT/HCPCS: 10195

== ENCOUNTER → 2021-02-12 | Outpatient (CLI) | payer OTHER ==
[~2021-02-12] MED LIST changes: +CARVEDILOL25 MG PO; +ENTRESTO 97 MG1 EACH PO; +METFORMIN HCL500 M1 PO; +PROTONIX40 M2 PO; +REGLAN 5 MG TAB5 MG PO; +ROBAXIN 750 MG750 MG PO; +ZOFRAN 4 MG ORAL4 MG PO
== END ==
LOC: SJCVCIMAG 09:09
PROVIDERS: ATTEND Internal Medicine
DX: I08.1 Rheumatic disorders of both mitral and tricuspid valves (principal); R94.31 Abnormal electrocardiogram [ECG] [EKG]; I42.9 Cardiomyopathy, unspecified; Z79.899 Other long term (current) drug therapy